=== PATIENT | male | born 1965 | race Caucasian/White ===

== ENCOUNTER → 2022-10-06 07:42 | Outpatient (CLI) | payer BC, SELFPAY ==
--- NOTE | 2022-10-06 | CA_ITS ---
APPROVED REPORT Exam: Exercise Treadmill Technologist: Yenifer Galloway, Ht: 5 ft 9 in Wt: 260 lbs BSA: 2.31 m2 HR: 63 bpm BP: 118/80 mmHg Medical History Medications: Atenolol,,,,, HCTZ,,,,, Crestor,,,,, Ramaphril,,,,, Stress Test Details Test: Dominic HR Resting HR: 69 bpm Max Heart Rate (APMHR): 162 bpm Max HR Achieved: 139 bpm Target HR (85% APMHR): 137 bpm % of APMHR: 85 Recovery HR: 83 bpm BP Resting BP: 122/82 mmHg Max BP: 172/82 mmHg Recovery BP: 158.0/76.0 mmHg ECG Clinical Exercise duration: 08:17 min Highest Stage Achieved: III Exercise capacity: 10.1 METs Stress ECG Conclusion Stopped early-Legs tired Symptoms: Legs Tired Arrhythmias/Ectopy: occasional PAC/PVC ST-T Changes: <1.5mm ST Changes. No evidence of ischemic changes on ECG tracings. Poor fitness noted. Test Summary REST . . . . . . . Resting REST . . . . . . . Sitting REST 10:56 0.0 0.0 69 . 122/ 82 . . Stage 1 01:00 10.0 1.7 93 . . . . Stage 1 02:00 10.0 1.7 99 . . . . Stage 1 03:00 10.0 1.7 103 . 142/ 78 . . Stage 2 01:00 12.0 2.5 109 . . . . Stage 2 02:00 12.0 2.5 118 . . . . Stage 2 03:00 12.0 2.5 119 . 140/ 80 . . Stage 3 01:00 14.0 3.4 132 . . . . Stage 3 02:00 14.0 3.4 136 . . . . Stage 3 02:17 14.0 3.4 138 . . . Stop exercise at 08:17 RECOVERY 01:00 0.0 0.0 111 . . . . RECOVERY 02:00 0.0 0.0 103 . 172/ 82 . . RECOVERY 03:00 0.0 0.0 91 . 158/ 84 . . RECOVERY 04:00 0.0 0.0 94 . 158/ 84 . . RECOVERY 04:50 0.0 0.0 87 . 158/ 76 . . Electronically signed by : Antonio Murguia MD 10/06/2022 19:45:15
== END ==
PROVIDERS: PCP Nurse Practitioner Family; Visit Provider Nurse Practitioner Family
DX: I25.10 Atherosclerotic heart disease of native coronary artery without angina pectoris (principal)
CPT/HCPCS: 93017